=== PATIENT | male | born 1960 | race Two or more races ===

== ENCOUNTER 2019-08-18 21:37 | Emergency (ER) | payer SELFPAY ==
[~2019-08-18] VITALS: Ht 170.2 cm; Wt 93.0 kg
[~2019-08-18 21:37] MED LIST: NO REPORTABLE MEDS
--- NOTE | 2019-08-18 21:37 | NUR ---
PT BIB FAMILY C/O L SIDED CP SINCE 1900, ABDOMINAL PAIN WITH NAUSEA X3 DAYS, PT IS AAOX4, NOT IN RESPIRATORY DISTRESS, HOOKED TO MONITOR, KEPT RESTED AND COMFORTABLE, WILL CONTINUE TO MONITOR.
--- NOTE | 2019-08-18 21:45 | NUR ---
IV LINE ESTABLISHED, BLOOD DRAWN AND SENT TO LAB.
--- NOTE | 2019-08-18 22:04 | NUR ---
SEEN AND EXAMINED BY .
[2019-08-18] MEDS ORDERED: NITROGLYCERIN PACKET 1 GM PACKET ONE (22:09)
[2019-08-18] MEDS ORDERED: ASPIRIN 81 MG TAB.CHEW ONE (22:09)
[2019-08-18] MEDS ORDERED: ONDANSETRON HCL/PF 4 MG/2 ML VIAL ONE (22:09)
[2019-08-18 22:20] LABS: BASOPHILS % (AUTO) 0.4 % (0.0-2.0); EOSINOPHILS % (AUTO) 0.7 % (0.0-6.0); HEMATOCRIT 45 % (39-51); HEMOGLOBIN 15.4 g/dL (13.5-17.5); LYMPHOCYTES # (AUTO) 2.8 /CMM (0.8-4.8); MEAN CORPUSCULAR HGB CONC 34 g/dl (31.0-36.0); MEAN CORPUSCULAR VOLUME 88 fL (80-96); MONOCYTES # (AUTO) 0.6 /CMM (0.1-1.30); MONOCYTES % (AUTO) 5.6 % (2.0-12.0); NEUTROPHILS # (AUTO) 7.2 /CMM (1.8-8.9); NEUTROPHILS % (AUTO) 67.3 % (43.0-81.0); PLATELET COUNT (AUTO) 162 /CMM (150-450); RED BLOOD CELL COUNT(AUTO) 5.14 MIL/uL (4.5-6.0); WHITE BLOOD COUNT (AUTO) 10.6 K/uL (4.3-11.0)
[2019-08-18 22:22] LABS: CALCIUM, SERUM 9.5 mg/dL (8.5-10.1); CARBON DIOXIDE 29 mmol/L (21-32); CHLORIDE 106 mmol/L (98-107); CREATININE 0.9 mg/dL (0.6-1.3); GLUCOSE 102 mg/dL (74-106); POTASSIUM 3.8 mmol/L (3.5-5.1); SODIUM SERUM 139 mmol/L (136-145); UREA NITROGEN, BLOOD 14 mg/dL (7-18)
--- NOTE | 2019-08-18 22:23 | NUR ---
DELIVER DRIVER AT BEDSIDE FOR XRAY.
[2019-08-18] MEDS ORDERED: IV NS 0.9% 500 ML BAG IV ONE (22:30)
[2019-08-18] MEDS ORDERED: ONDANSETRON HCL/PF 4 MG/2 ML VIAL IVP ONE (22:30)
[2019-08-18] MEDS ORDERED: NITROGLYCERIN PACKET 1 GM PACKET TD ONE (22:30)
[2019-08-18] MEDS ORDERED: ASPIRIN 81 MG TAB.CHEW PO ONE (22:30)
[2019-08-18] MEDS ORDERED: CT SWABBABLE VALVE TRANS SET 1 EA INFUS.SET MC ONE (22:32)
[2019-08-18] MEDS ORDERED: IV NS 0.9% 250 ML IV ONE (22:32)
[2019-08-18] MEDS ORDERED: IOHEXOL-300 100 ML VIAL IV ONE (22:32)
[2019-08-18 22:35] LABS: D-DIMER 0.32 mg/L(FEU (0.17-0.50)
[2019-08-18 22:36] LABS: ALANINE AMINOTRANSFERASE 30 U/L (12-78); ALBUMIN 3.8 g/dL (3.4-5.0); ALKALINE PHOSPHATASE 58 U/L (46-116); ASPARTATE AMINOTRANSFERASE 15 U/L (15-37); B-TYPE NATRIURETIC PEPTIDE 76 PG/ML (0-125); BILIRUBIN,DIRECT 0.2 mg/dL (0.0-0.2); BILIRUBIN,TOTAL 0.9 mg/dL (0.2-1.0); TOTAL PROTEIN, SERUM 7.1 g/dL (6.4-8.2)
--- NOTE | 2019-08-19 00:48 | NUR ---
Marylin ferris in [facility] - 08/19/19 at 0048 by CHET RAPID INFLUENZA OBTAINED AND SENT TO LAB
--- NOTE | 2019-08-19 02:25 | NUR ---
IV removed. Catheter intact and site benign. Pressure and 4x4 applied to site. No bleeding noted. Patient discharged to home in stable condition. Written and verbal after care instructions given. Patient verbalizes understanding of instruction.
[2019-08-19 02:26] VITALS: BP 129/75
== END 2019-08-19 02:29 | disposition home or self-care (01) ==
LOC: ER 21:39
DX: K46.9 Unspecified abdominal hernia without obstruction or gangrene (principal); R07.89 Other chest pain; F17.200 Nicotine dependence, unspecified, uncomplicated; Z98.890 Other specified postprocedural states
CPT/HCPCS: 36415 ×2; 71045; 74177; 80048; 80076; 83880; 84484 ×2; 85025; 85378; 85730; 93005; 96374; 99284; 99406; J2405; J7040; J7050; Q9967